=== PATIENT | female | born 1940 | race Native Hawaiian/Other Pacific Islander ===

== ENCOUNTER 2018-02-06 10:15 | Outpatient (CLI) | payer OTHER | END 2018-02-06 18:00 | disposition home or self-care (01) | LOC: MRI 10:15 | DX: R41.89 Other symptoms and signs involving cognitive functions and awareness (principal) ==

== ENCOUNTER 2019-02-26 09:47 | Outpatient (CLI) | payer OTHER ==
[2019-02-26] MEDS ORDERED: DONE5TAB PO (15:01)
[2019-02-26] MEDS ORDERED: LEXAPRO10 MG PO (15:02)
[2019-02-26] MEDS ORDERED: MACROBID100 MG PO (15:03)
== END 2019-02-26 09:50 | disposition short-term general hospital (02) ==
LOC: AMB 09:47
DX: S01.81XA Laceration without foreign body of other part of head, initial encounter (principal); S51.012A Laceration without foreign body of left elbow, initial encounter; W19.XXXA Unspecified fall, initial encounter; Y92.099 Unspecified place in other non-institutional residence as the place of occurrence of the external cause; R11.0 Nausea; R42 Dizziness and giddiness
CPT/HCPCS: A0425; A0429

== ENCOUNTER 2019-02-26 09:50 | Inpatient (IN) | payer OTHER ==
[2019-02-26] VITALS (9 sets, daily range): BP systolic 119–156; BP diastolic 49–68; TEMP 97.9–99; Ht 162.6 cm; Wt 51.4 kg
[~2019-02-26] VITALS: Ht 162.6 cm; Wt 51.4 kg
[2019-02-26 10:28] LABS: PLATELET COUNT 186 K/uL (152-353)
[2019-02-26 10:42] LABS: POTASSIUM 3.5 mmol/L (3.6-5.2)
[2019-02-26] MEDS ORDERED: DONE5TAB PO (15:01)
[2019-02-26] MEDS ORDERED: LEXAPRO10 MG PO (15:02)
[2019-02-26] MEDS ORDERED: MACROBID100 MG PO (15:03)
[2019-02-27] VITALS: BP 138/68; TEMP 98.4
[2019-02-27 08:00] VITALS: BP 132/53; TEMP 98.7
[2019-02-27 08:56] LABS: PLATELET COUNT 184 K/uL (152-353)
[2019-02-27 09:02] LABS: POTASSIUM 3.4 mmol/L (3.6-5.2)
[2019-02-27 12:00] VITALS: BP 112/48; TEMP 98.7
[2019-02-27 16:00] VITALS: BP 122/71; TEMP 99
[2019-02-27 20:00] VITALS: BP 121/63; TEMP 98.7
[2019-02-27 23:58] VITALS: BP 125/63; TEMP 98.6
[2019-02-28 05:48] LABS: PLATELET COUNT 168 K/uL (152-353)
[2019-02-28 05:56] LABS: POTASSIUM 3.7 mmol/L (3.6-5.2)
[2019-02-28 08:00] VITALS: BP 129/61; TEMP 98.9
[2019-02-28 12:00] VITALS: BP 116/57; TEMP 98.6
[2019-02-28 16:00] VITALS: BP 119/48; TEMP 97.6
[2019-03-01] VITALS: BP 139/81; TEMP 98.7
[2019-03-01 04:13] VITALS: BP 127/76; TEMP 98.6
[2019-03-01 06:51] LABS: PLATELET COUNT 176 K/uL (152-353)
[2019-03-01 07:07] LABS: POTASSIUM 3.7 mmol/L (3.6-5.2)
[2019-03-01 08:00] VITALS: BP 151/89; TEMP 98.7
[2019-03-01 16:00] VITALS: BP 141/64; TEMP 98.4
[2019-03-01 20:00] VITALS: BP 126/58; TEMP 98.1
[2019-03-02] VITALS: BP 131/70; TEMP 97.6
[2019-03-02 04:00] VITALS: BP 125/71; TEMP 98.4
[2019-03-02 05:43] LABS: PLATELET COUNT 184 K/uL (152-353)
[2019-03-02 06:03] LABS: POTASSIUM 3.7 mmol/L (3.6-5.2)
[2019-03-02 08:00] VITALS: BP 140/72; TEMP 98.8
[2019-03-02] MEDS ORDERED: CEPH500C20 PO (09:49)
[2019-03-02 12:00] VITALS: BP 116/44; TEMP 98.7
== END 2019-03-02 12:55 | disposition home or self-care (01) | DRG 605 ==
LOC: ED 09:52 → MED/SURG 12:25
PROVIDERS: Family Medicine; Internal Medicine; ADMIT Emergency Medicine
PROC: 0HQ1XZZ Repair Face Skin, External Approach (ICD-10-PCS; principal; 2019-02-27)
DX: S01.81XA Laceration without foreign body of other part of head, initial encounter (principal); N39.0 Urinary tract infection, site not specified; G30.1 Alzheimer's disease with late onset; F02.80 Dementia in other diseases classified elsewhere, unspecified severity, without behavioral disturbance, psychotic disturbance, mood disturbance, and anxiety; R26.89 Other abnormalities of gait and mobility; W19.XXXA Unspecified fall, initial encounter; Y92.091 Bathroom in other non-institutional residence as the place of occurrence of the external cause; R62.7 Adult failure to thrive; E87.6 Hypokalemia; D72.828 Other elevated white blood cell count; Z85.51 Personal history of malignant neoplasm of bladder; B96.20 Unspecified Escherichia coli [E. coli] as the cause of diseases classified elsewhere; R73.03 Prediabetes; R73.9 Hyperglycemia, unspecified; Y84.9 Medical procedure, unspecified as the cause of abnormal reaction of the patient, or of later complication, without mention of misadventure at the time of the procedure; N99.531 Infection of continent stoma of urinary tract; Z93.6 Other artificial openings of urinary tract status
CPT/HCPCS: 36415; 80048; 80053; 81000; 83036; 83735; 85027; 87077; 87086; 87088; 87186; 99283; J0696

== ENCOUNTER 2020-03-15 11:07 | Outpatient (CLI) | payer OTHER ==
[~2020-03-15 11:07] MED LIST: CEPH500C20 PO; DONE5TAB PO; LEXAPRO10 MG PO; MACROBID100 MG PO
== END 2020-03-15 22:56 | disposition home or self-care (01) ==
LOC: MAMMO 11:07
DX: Z12.31 Encounter for screening mammogram for malignant neoplasm of breast (principal)

== ENCOUNTER 2021-07-22 18:27 | Inpatient (IN) | payer OTHER ==
[~2021-07-22] VITALS: Ht 162.6 cm; Wt 47.7 kg
[2021-07-22] VITALS (9 sets, daily range): BP systolic 103–120; BP diastolic 51–75; TEMP 101.5
[2021-07-22 19:00] LABS: PLATELET COUNT 216 K/uL (152-353)
[2021-07-22 19:11] LABS: POTASSIUM 3.1 mmol/L (3.6-5.2); SODIUM 130 mmol/L (136-145)
[2021-07-22 19:16] LABS: PARTIAL THROMBOPLASTIN TIME 30.8 SECONDS (24.5-33.6)
[2021-07-23] VITALS (10 sets, daily range): BP systolic 100–153; BP diastolic 46–88; TEMP 97–98.6; Ht 162.6 cm; Wt 47.7 kg
[2021-07-23 09:58] LABS: POTASSIUM 4.3 mmol/L (3.6-5.2)
[2021-07-23 16:27] LABS: PLATELET COUNT 228 K/uL (152-353)
[2021-07-23 16:48] LABS: POTASSIUM 3.7 mmol/L (3.6-5.2); SODIUM 135 mmol/L (136-145)
[2021-07-24 00:13] VITALS: BP 165/88; TEMP 100
[2021-07-24 04:23] LABS: PLATELET COUNT 191 K/uL (152-353)
[2021-07-24 04:36] LABS: POTASSIUM 3.5 mmol/L (3.6-5.2)
[2021-07-24] MEDS ORDERED: METFTAB PO (07:47)
[2021-07-24 08:00] VITALS: BP 145/85; TEMP 97.7
[2021-07-24 12:00] VITALS: BP 137/77; TEMP 97.8
[2021-07-24 15:31] LABS: PLATELET COUNT 206 K/uL (152-353)
[2021-07-24 16:00] VITALS: BP 177/91; TEMP 98.4
[2021-07-24 18:02] LABS: POTASSIUM 3.7 mmol/L (3.6-5.2)
[2021-07-24 18:27] VITALS: BP 138/80; TEMP 97.8
[2021-07-24 22:28] VITALS: BP 129/93; TEMP 98.6
[2021-07-25 04:03] VITALS: BP 132/84; TEMP 98.8
[2021-07-25 06:51] LABS: PLATELET COUNT 210 K/uL (152-353)
[2021-07-25 07:03] LABS: POTASSIUM 2.6 mmol/L (3.6-5.2)
[2021-07-25 09:25] VITALS: BP 131/80; TEMP 97.8
[2021-07-25] MEDS ORDERED: XANAX XR0.5 MG PO (13:58)
[2021-07-25] MEDS ORDERED: MEGESTROL AC40 MG/ML PO (14:00)
[2021-07-25] MEDS ORDERED: AZO TABS95 MG PO (14:03)
[2021-07-25 18:27] VITALS: BP 130/80; TEMP 98.3
[2021-07-25 22:27] VITALS: BP 128/82; TEMP 97.9
[2021-07-26 02:27] VITALS: BP 123/81; TEMP 98.2
[2021-07-26 08:00] VITALS: BP 122/72; TEMP 96.9
[2021-07-26 18:28] LABS: PLATELET COUNT 272 K/uL (152-353)
[2021-07-26 19:00] LABS: POTASSIUM 2.8 mmol/L (3.6-5.2)
[2021-07-27 00:04] VITALS: BP 116/79; TEMP 98.2
[2021-07-27 02:27] VITALS: BP 117/79; TEMP 98.5
[2021-07-27 14:27] VITALS: BP 121/67; TEMP 98.1
[2021-07-27 20:00] VITALS: BP 133/78; TEMP 98.6
[2021-07-28] VITALS: BP 123/78; TEMP 98.1
[2021-07-28 04:00] VITALS: BP 116/71; TEMP 98.2
[2021-07-28 10:27] VITALS: BP 128/81; TEMP 98.2
[2021-07-28 14:59] VITALS: BP 138/82; TEMP 97.8
== END 2021-07-28 17:34 | disposition home or self-care (01) | DRG 178 ==
LOC: ED 18:27 → MED/SURG 07-23 12:20
PROVIDERS: Hospitalist; ADMIT Family Medicine; ATTEND Family Medicine
DX: U07.1 COVID-19 (principal); N39.0 Urinary tract infection, site not specified; I47.2 Ventricular tachycardia; E83.42 Hypomagnesemia; E87.6 Hypokalemia; E86.0 Dehydration; F41.8 Other specified anxiety disorders; R63.0 Anorexia; E11.9 Type 2 diabetes mellitus without complications; G30.1 Alzheimer's disease with late onset; F02.80 Dementia in other diseases classified elsewhere, unspecified severity, without behavioral disturbance, psychotic disturbance, mood disturbance, and anxiety; B96.89 Other specified bacterial agents as the cause of diseases classified elsewhere
CPT/HCPCS: 36415; 80048; 80053; 80320; 81000; 82550; 82553; 82728; 83605; 83735; 83880; 84100; 84484; 85027; 85379; 85610; 85730; 86140; 87040; 87077; 87086; 87088; 87185; 87186; 87205; 87635; 93005; 94760; 96360; 96365; 96372; 99284; J0696; J1650; J2543; J3475; J3490; P9047; U0003

== ENCOUNTER 2022-03-07 10:53 | Emergency (ER) | payer OTHER ==
[~2022-03-07] VITALS: Ht 162.6 cm; Wt 68.0 kg
[~2022-03-07 10:53] MED LIST changes: +AZO TABS95 MG PO; +MEGESTROL AC40 MG/ML PO; +METFTAB PO; +XANAX XR0.5 MG PO
[2022-03-07 11:20] VITALS: TEMP 97
[2022-03-07 11:43] LABS: PLATELET COUNT 99 K/uL (152-353)
[2022-03-07 11:58] LABS: POTASSIUM 2.3 mmol/L (3.6-5.2)
[2022-03-07 14:50] VITALS: BP 97/61
== END 2022-03-07 14:50 | disposition short-term general hospital (02) ==
LOC: ED 10:53
PROVIDERS: Emergency Medicine
DX: A41.9 Sepsis, unspecified organism (principal); E43 Unspecified severe protein-calorie malnutrition; E87.6 Hypokalemia; Z11.52 Encounter for screening for COVID-19
CPT/HCPCS: 80053; 81000; 83605; 84484; 85027; 85610; 87040; 87077; 87086; 87088; 87186; 87635; 93005; 96360; 96361; 96365; 96366; 99284; J1450; J2543; J3370; U0003